=== PATIENT | female | born 1950 | race Caucasian/White ===

== ENCOUNTER 2019-01-02 16:25 | Emergency (ER) | payer OTHER ==
[~2019-01-02] VITALS: Ht 157.5 cm; Wt 65.8 kg
[~2019-01-02 16:25] MED LIST: ASPIR 8181 MG PO; CALCIUM + VITA1 EACH PO; ESTRADIOL 1 MG T1 M1 PO; FISH OIL 1,2001 EAC4 PO; GLUCOPHAGE XR500 MG PO; HYDROCHLOROTHIA25 M2 PO; LANSOPRAZOLE15 MG PO; LISINOPRIL20 MG PO; MOBIC7.5 MG PO; POTABA500 M1 PO
[2019-01-02 19:48] VITALS: BP 175/86
--- NOTE | 2019-01-02 23:34 | EKG ---
[address] [address] ELECTROCARDIOGRAM REPORT Name: MERCEDES MANUEL [facility] [id number] ������������������ Admission: 01/02/19 ������������������ Attend Phys: Discharge: 01/02/19 ������������������ Date of : 46 Report #: [id number] ����������������������������������������������������������������� [id number] THIS REPORT FOR: //name// [facility] ED Test Date: 2019-01-02 Test Time: 17:11:32 Pat Name: MERCEDES MANUEL Department: Room: Gender: F Gerontological Nurse Practitioner: : [id number] Requested By: Willow Acuna Order Number: [id number] MD: Rayo Chatterjee Measurements Intervals [place] Rate: 75 P: 37 NE: 167 QRS: 22 QRSD: 89 T: 55 QT: 404 QTc: 452 Interpretive Statements Sinus rhythm Compared to ECG 10/13/2015 10:41:45 No significant changes Electronically Signed On 01-02-2019 23:34:11 CDT by Rayo Chatterjee [email or web address] ��������������������������������������������� <ELECTRONICALLY SIGNED> ���������������������������������������� By: Rayo Chatterjee MD ��������������������������������������������� 01/02/19 [id number] 1711 MD ILDA Pace
== END 2019-01-02 19:51 | disposition home or self-care (01) ==
LOC: ER 16:25
DX: I95.1 Orthostatic hypotension (principal); I10 Essential (primary) hypertension; E11.9 Type 2 diabetes mellitus without complications; K21.9 Gastro-esophageal reflux disease without esophagitis; Z88.2 Allergy status to sulfonamides; Z88.8 Allergy status to other drugs, medicaments and biological substances; Z98.890 Other specified postprocedural states; Z90.710 Acquired absence of both cervix and uterus